=== PATIENT | female | born 1970 | race Caucasian/White ===

== ENCOUNTER → 2019-07-04 16:38 | Outpatient (BNVA) | payer SELFPAY | PROVIDERS: Family Provider Nurse Practitioner; PCP Nurse Practitioner; Visit Provider Nurse Practitioner | DX: E03.8 Other specified hypothyroidism (principal) | CPT/HCPCS: 84443 ==

== ENCOUNTER → 2019-11-16 08:10 | Outpatient (BNVA) | payer SELFPAY | PROVIDERS: Family Provider Nurse Practitioner; PCP Nurse Practitioner; Visit Provider Nurse Practitioner | DX: N39.0 Urinary tract infection, site not specified (principal); R39.9 Unspecified symptoms and signs involving the genitourinary system | CPT/HCPCS: 81003 ==

== ENCOUNTER → 2020-01-17 12:18 | Outpatient (BNVA) | payer SELFPAY | PROVIDERS: Family Provider Nurse Practitioner; PCP Nurse Practitioner; Visit Provider Nurse Practitioner | DX: E03.8 Other specified hypothyroidism (principal) | CPT/HCPCS: 84443 ==

== ENCOUNTER → 2020-05-09 08:25 | Outpatient (BNVA) | payer SELFPAY | PROVIDERS: Family Provider Nurse Practitioner; PCP Nurse Practitioner; Visit Provider Nurse Practitioner | DX: E03.8 Other specified hypothyroidism (principal); F41.9 Anxiety disorder, unspecified | CPT/HCPCS: 80053; 84443 ==

== ENCOUNTER → 2020-11-03 15:21 | Outpatient (BNVA) | payer OTHER, SELFPAY | PROVIDERS: Family Provider Nurse Practitioner; PCP Nurse Practitioner; Visit Provider Nurse Practitioner | DX: E03.8 Other specified hypothyroidism (principal); R53.83 Other fatigue; E55.9 Vitamin D deficiency, unspecified; F41.9 Anxiety disorder, unspecified | CPT/HCPCS: 80053; 82306; 82607; 84443; 85025 ==

== ENCOUNTER → 2021-05-04 15:59 | Outpatient (BNVA) | payer OTHER, SELFPAY | PROVIDERS: Family Provider Nurse Practitioner; PCP Nurse Practitioner; Visit Provider Nurse Practitioner | DX: E03.8 Other specified hypothyroidism (principal) | CPT/HCPCS: 80053; 84443 ==

== ENCOUNTER → 2021-12-08 10:50 | Outpatient (BNVA) | payer SELFPAY | PROVIDERS: Family Provider Nurse Practitioner; PCP Nurse Practitioner; Visit Provider Dermatology | DX: Z01.89 Encounter for other specified special examinations (principal) ==

== ENCOUNTER → 2022-06-08 09:13 | Outpatient (BNVA) | payer SELFPAY | PROVIDERS: Family Provider Nurse Practitioner; PCP Nurse Practitioner; Referring Provider Dermatology; Visit Provider Dermatology | DX: Z01.89 Encounter for other specified special examinations (principal) ==

== ENCOUNTER → 2022-06-29 08:43 | Outpatient (BNVA) | payer SELFPAY | PROVIDERS: Family Provider Nurse Practitioner; PCP Nurse Practitioner; Visit Provider Nurse Practitioner | DX: E03.8 Other specified hypothyroidism (principal); I10 Essential (primary) hypertension; F41.9 Anxiety disorder, unspecified | CPT/HCPCS: 80053; 80061; 84439; 84443; 84481; 85025 ==

== ENCOUNTER → 2022-12-07 09:29 | Outpatient (BNVA) | payer SELFPAY | PROVIDERS: Family Provider Nurse Practitioner; PCP Nurse Practitioner; Referring Provider Nurse Practitioner; Visit Provider Dermatology | DX: Z01.89 Encounter for other specified special examinations (principal) ==

== ENCOUNTER 2023-02-17 21:46 | Emergency (ER) | payer SELFPAY ==
[2023-02-17 21:55] VITALS: BP 160/101; PULSE 76; RESP 18; TEMP 36.8; O2SAT 99; BMI 29.0
--- NOTE | 2023-02-17 22:18 | CTR_ITS ---
PROCEDURE INFORMATION: Exam: CT Abdomen And Pelvis Without Contrast Exam date and time: 02/17/2023 10:41 PM Age: 52 years old Clinical indication: Abdominal pain; Prior surgery; Surgery date: 6+ months; Surgery type: Appy. Hysterectomy. Tubal. Patient HX: Left flank pain with nausea; Additional info: Left flank pain radiating to groin TECHNIQUE: Imaging protocol: Computed tomography of the abdomen and pelvis without contrast. Radiation optimization: All CT scans at this facility use at least one of these dose optimization techniques: automated exposure control; mA and/or kV adjustment per patient size (includes targeted exams where dose is matched to clinical indication); or iterative reconstruction. REPORTING DATA: Count of CT and Cardiac NM exams in prior 12 months: This patient has received 0 known CTs and 0 known cardiac nuclear medicine studies in the 12 months prior to the current study. COMPARISON: No relevant prior studies available. RADIATION DOSE METRICS: Total DLP (mGy-cm): 671.51 FINDINGS: Liver: Normal. No mass. Gallbladder and bile ducts: Normal. No calcified stones. No ductal dilation. Pancreas: Normal. No ductal dilation. Spleen: Normal. No splenomegaly. Adrenal glands: Normal. No mass. Kidneys and ureters: 1 mm obstructing calculus in the distal left ureter with mild left hydronephrosis. 2 mm calculus in the right kidney without hydronephrosis. Stomach and bowel: Unremarkable. No obstruction. No mucosal thickening. Appendix: The appendix is not visualized. No secondary signs of appendicitis. Intraperitoneal space: Unremarkable. No free air. No significant fluid collection. Vasculature: Arterial calcifications. No aneurysm. Lymph nodes: Unremarkable. No enlarged lymph nodes. Urinary bladder: Unremarkable as visualized. Reproductive: Unremarkable as visualized. Bones/joints: Mild degenerative changes of the spine. No acute fracture. Soft tissues: Unremarkable. CT/CT kidney stone [id number] IMPRESSION: 1. 1 mm obstructing calculus in the distal left ureter with mild hydronephrosis. 2. 2 mm right renal calculus.
--- NOTE | 2023-02-17 22:22 | W.ED.ABDPA2 ---
Documented by User: Blaine Rendon DO 02/17/23 22:25 HPI - Abdominal Pain General: Chief Complaint: Abdominal Pain Stated Complaint: Lower Back Pain\V Time Seen by Provider: 02/17/23 22:13 History of Present Illness: Patient presents to the ER with complaints of sudden onset left-sided sharp stabbing flank pain radiating to her groin that started at 1830 this evening. Patient has never had this before. Patient is nauseous and has vomited secondary to the pain. Patient is found nothing relieves the pain. Patient has never had this pain before. Patient does not have a history of kidney stones. Review of Systems General: Reports: 10 or more systems reviewed and unremarkable except in HPI and below PFSH ED PFSH: Medical History Adult onset hypothyroidism Anxiety Essential hypertension Surgical History History of appendectomy History of hysterectomy History of tubal ligation Family History Other Cancer Depression Hypertension Psychiatric illness Stroke Thyroid condition Social History Smoking and tobacco status: former smoker Quit status (tobacco): has quit using tobacco Second hand smoke exposure: No Smoking risk assessment/counseling performed?: No Alcohol intake: unknown Desire information about alcohol rehabilitation?: No Counseling given: No Substance/Drug Use: never Desire information about substance/drug rehabilitation?: No Counseling given: No Adopted: No Caregiver/support person: No Lives independently: Yes Household members: spouse Housing: House Marital status: Number of children: 4 Highest education level completed: Associate Degree: Occupational, Technical, Vocational Program service: No Current occupational status: employed Previous occupational history: retirement Pets and animals: Yes Do you think of yourself as: Straight/Heterosexual Current gender identity: Female Physical Exam Const: COMMON NORMALS: average body habitus, patient oriented x3, no limitations, healthy appearing, alert and well nourished HENMT: COMMON NORMALS: normocephalic, atraumatic, hearing grossly normal bilaterally, external ears normal, Normal external nose present and moist oral mucous membranes HEAD & SCALP: normocephalic and atraumatic NOSE: Normal external nose present EXTERNAL EAR: Yes external ears normal Neck/C-Spine: COMMON NORMALS: no JVD Chest: COMMONS NORMALS: normal inspection of the chest and normal palpation of entire chest wall Resp: COMMON NORMALS: normal respiratory effort, No retractions, No use of accessory muscles and clear to auscultation bilaterally AUSCULTATION: clear to auscultation bilaterally Cardio: COMMON NORMALS: no JVD, regular rate, regular rhythm, S1 normal heart sound present, S2 normal heart sound present, No gallops present (Cardio), No clicks present (Cardio), No murmurs present (Cardio) and No rub (Cardio) RATE: regular rate RHYTHM: regular rhythm HEART SOUNDS: S1 normal heart sound present and S2 normal heart sound present GI: COMMON NORMALS: Normal to inspection, nondistended, normoactive bowel sounds present, Soft to palpation, non-tender, No hepatosplenomegaly present and no masses PALPATION: Yes Soft to palpation and Yes No hepatosplenomegaly present : COMMON NORMALS: No no CVA tenderness (Left CVA tenderness) BLADDER/KIDNEY EXAM: No no CVA tenderness (Left CVA tenderness) Back/Pelvis: COMMON NORMALS: negative for no CVA tenderness (Left CVA tenderness) Neuro: COMMON NORMALS: patient oriented x3 SENSORIUM/ORIENTATION: Yes alert Course Vital Signs: Vital signs: Vital Signs Temperature 98.3 F 02/17/23 21:55 Pulse Rate 76 02/17/23 21:55 Respiratory Rate 18 02/17/23 23:43 Blood Pressure 160/101 02/17/23 21:55 Pulse Oximetry 99 02/17/23 21:55 MDM - Abdominal Pain Differential Diagnosis Likely calculus of kidney; Unlikely abdominal pain, acute appendicitis, constipation, diverticulitis, endometriosis, gastroenteritis, pancreatitis or small bowel obstruction Medical Records I reviewed the patient's medical records. Lab Data I reviewed the patient's lab results. 02/17/23 22:24 02/17/23 22:24 Labs/Radiology: Radiology Impressions Abdomen/Pelvis CT 02/17/23 22:18 IMPRESSION: 1. 1 mm obstructing calculus in the distal left ureter with mild hydronephrosis. 2. 2 mm right renal calculus. Laboratory Results WBC 16.49 10^3/uL (3.29-11.43) H 02/17/23 22:24 RBC 4.35 10^6/uL (3.85-5.65) 02/17/23 22: Hgb 14.30 g/dL (11.27-16.99) 02/17/23 22: Hct 41.2 % (36-47) 02/17/23 22: MCV 94.7 fl (85-98) 02/17/23 22: MCH 32.9 pg (27-33) 02/17/23 22: MCHC 34.7 g/dL (30-55) 02/17/23 22: RDW 12.4 % (12.1-15.1) 02/17/23: Plt Count 245 10^3/cmm (157-399) 02/17/23: MPV 9.2 fL (7.4-10.4) 02/17/23 22: Neut % (Auto) 87.2 % 02/17/23 22: Lymph % (Auto) 7.1 % 02/17/23: Nicholas % (Auto) 3.8 % 02/17/23 22: Eos % (Auto) 0.8 % 02/17/23 22: Baso % (Auto) 0.6 % 02/17/23: Neut # (Auto) 14.39 10^3/uL (1.8-7.7) H 02/17/23: Lymph # (Auto) 1.2 10^3/uL (0.8-4.8) 02/17/23 22: Nicholas # (Auto) 0.6 10^3/uL (0.2-0.9) 02/17/23 22: Eos # (Auto) 0.1 10^3/uL (0.0-0.8) 02/17/23 22: Baso # (Auto) 0.1 10^3/uL (0.0-0.1) 02/17/23: Nucleated RBC % (auto) 0 % 02/17/23: Nucleated RBCs # 0.0 /100WBC 02/17/23 22:24 Sodium 142 mmol/L (136-145) 02/17/23 22: Potassium 3.5 mmol/L (3.5-5.1) 02/17/23 22:24 Chloride 103 mmol/L (98-107) 02/17/23 22:24 Carbon Dioxide 25 mmol/L (22-29) 02/17/23 22:24 Anion Gap 17.5 (5-19) 02/17/23 22:24 BUN 12 mg/dL (6-20) 02/17/23 22:24 Creatinine 1.1 mg/dL (0.5-0.9) H 02/17/23 22:24 GFR Calculation 52.4 mL/min (90-130) L 02/17/23 22:24 Glucose 150 mg/dL (65-115) H 02/17/23 22:24 Calculated Osmolality 297 mOsm/kg (285-295) H 02/17/23 22:24 Calcium 10.0 mg/dL (8.5-10.5) 02/17/23 22:24 Total Bilirubin 0.3 mg/dL (0.15-1.2) 02/17/23 22:24 AST 15 U/L (0-32) 02/17/23 22:24 ALT 11 U/L (0-33) 02/17/23 22:24 Alkaline Phosphatase 111 U/L (35-105) H 02/17/23 22:24 Total Protein 7.2 g/dL (6.6-8.7) 02/17/23 22:24 Albumin 4.9 g/dL (3.5-5.2) 02/17/23 22:24 Globulin 2.3 g/dL (1.3-4.6) 02/17/23 22:24 Lipase 18 U/L (13-60) 02/17/23 22:24 HCG, Qual Negative (Negative) 02/17/23 22:24 Urine Color Yellow (Yellow) 02/17/23 22:37 Urine Appearance Cloudy (CLEAR) A 02/17/23 22:37 Urine pH 6 (5-7) 02/17/23 22:37 Ur Specific [place] 1.020 (1.005-1.030) 02/17/23 22:37 Urine Protein Trace (Negative) 02/17/23 22:37 Urine Glucose (UA) Norm (Normal) 02/17/23 22:37 Urine Ketones 1+ (Negative) H 02/17/23 22:37 Urine Blood 3+ (Negative) H 02/17/23 22:37 Urine Nitrate Positive (Negative) H 02/17/23 22:37 Urine Bilirubin Neg (Negative) 02/17/23 22:37 Urine Urobilinogen Neg mg/dL (Negative) 02/17/23 22:37 Ur Leukocyte Esterase 1+ (Negative) H 02/17/23 22:37 Urine RBC 15-25 /hpf (0-2) H 02/17/23 22:37 Urine WBC 15-25 /hpf (0-5) H 02/17/23 22:37 Ur Squamous Epith Cells 0-4 /hpf (0-5) H 02/17/23 22:37 Amorphous Sediment Not Reportable 02/17/23 22:37 Urine Bacteria 4+ /hpf (NONE) H 02/17/23 22:37 Urine Mucus 1+ /hpf 02/17/23 22:37 Discharge Plan Discharge Patient Disposition: Xfer Short-Term Hosp Clinical Impression: Kidney stone, UTI (urinary tract infection) Condition: Stable Prescriptions: No Action cranberry 500 mg capsule 500 mg PO DAILY Rx Instructions: administer with meals fluoxetine [Prozac] 40 mg capsule 40 mg PO QAM Qty: 90 1RF hydroxyzine pamoate 25 mg capsule 25 mg PO .at bedtime Qty: 90 1RF fenofibrate nanocrystallized [Tricor] 145 mg tablet 145 mg PO DAILY Qty: 90 1RF bupropion HCl [Wellbutrin SR] 200 mg tablet sustained-release 12 hr 200 mg PO Q12H Qty: 180 1RF valsartan-hydrochlorothiazide [Diovan HCT] 160-12.5 mg tablet 1 tab PO DAILY Qty: 90 1RF levothyroxine 75 mcg tablet 75 mcg PO DAILY Qty: 30 2RF Rx Instructions: dose decrease Referrals: Silvio Lazo, [facility] [Primary Care Provider] - Coding Level of Care Code ED Proprietary Trader for Chg Fwd Documented by User: Louise Santoyo MD 02/18/23 00:12 HPI - Abdominal Pain General: Chief Complaint: Abdominal Pain Stated Complaint: Lower Back Pain\V Time Seen by Provider: 02/17/23 22:13 PFSH ED PFSH: Medical History Adult onset hypothyroidism Anxiety Essential hypertension Surgical History History of appendectomy History of hysterectomy History of tubal ligation Family History Other Cancer Depression Hypertension Psychiatric illness Stroke Thyroid condition Social History Smoking and tobacco status: former smoker Quit status (tobacco): has quit using tobacco Second hand smoke exposure: No Smoking risk assessment/counseling performed?: No Alcohol intake: unknown Desire information about alcohol rehabilitation?: No Counseling given: No Substance/Drug Use: never Desire information about substance/drug rehabilitation?: No Counseling given: No Adopted: No Caregiver/support person: No Lives independently: Yes Household members: spouse Housing: House Marital status: Number of children: 4 Highest education level completed: Associate Degree: Occupational, Technical, Vocational Program service: No Current occupational status: employed Previous occupational history: retirement Pets and animals: Yes Do you think of yourself as: Straight/Heterosexual Current gender identity: Female Course Vital Signs: Vital signs: Vital Signs Temperature 98.3 F 02/17/23 21:55 Pulse Rate 76 02/17/23 21:55 Respiratory Rate 18 02/17/23 23:43 Blood Pressure 160/101 02/17/23 21:55 Pulse Oximetry 99 02/17/23 21:55 MDM - Abdominal Pain Medical Decision Making Patient presents here with an infected kidney stone she does have a kidney stone on the right with UTI spoke to Komal who accepted for high-level care for urology Lab Data 02/17/23 22:24 02/17/23 22:24 Labs/Radiology: Radiology Impressions Abdomen/Pelvis CT 02/17/23 22:18 IMPRESSION: 1. 1 mm obstructing calculus in the distal left ureter with mild hydronephrosis. 2. 2 mm right renal calculus. Laboratory Results WBC 16.49 10^3/uL (3.29-11.43) H 02/17/23 22:24 RBC 4.35 10^6/uL (3.85-5.65) 02/17/23 22:24 Hgb 14.30 g/dL (11.27-16.99) 02/17/23 22:24 Hct 41.2 % (36-47) 02/17/23 22:24 MCV 94.7 fl (85-98) 02/17/23 22: MCH 32.9 pg (27-33) 02/17/23 22: MCHC 34.7 g/dL (30-55) 02/17/23 22: RDW 12.4 % (12.1-15.1) 02/17/23: Plt Count 245 10^3/cmm (157-399) 02/17/23 22: MPV 9.2 fL (7.4-10.4) 02/17/23 22: Neut % (Auto) 87.2 % 02/17/23 22: Lymph % (Auto) 7.1 % 02/17/23 22: Nicholas % (Auto) 3.8 % 02/17/23 22:24 Eos % (Auto) 0.8 % 02/17/23 22: Baso % (Auto) 0.6 % 02/17/23: Neut # (Auto) 14.39 10^3/uL (1.8-7.7) H 02/17/23 22:24 Lymph # (Auto) 1.2 10^3/uL (0.8-4.8) 02/17/23 22: Nicholas # (Auto) 0.6 10^3/uL (0.2-0.9) 02/17/23 22: Eos # (Auto) 0.1 10^3/uL (0.0-0.8) 02/17/23 22: Baso # (Auto) 0.1 10^3/uL (0.0-0.1) 02/17/23 22: Nucleated RBC % (auto) 0 % 02/17/23: Nucleated RBCs # 0.0 /100WBC 02/17/23 22:24 Sodium 142 mmol/L (136-145) 02/17/23 22:24 Potassium 3.5 mmol/L (3.5-5.1) 02/17/23 22:24 Chloride 103 mmol/L (98-107) 02/17/23 22:24 Carbon Dioxide 25 mmol/L (22-29) 02/17/23 22:24 Anion Gap 17.5 (5-19) 02/17/23 22:24 BUN 12 mg/dL (6-20) 02/17/23 22:24 Creatinine 1.1 mg/dL (0.5-0.9) H 02/17/23 22:24 GFR Calculation 52.4 mL/min (90-130) L 02/17/23 22:24 Glucose 150 mg/dL (65-115) H 02/17/23 22:24 Calculated Osmolality 297 mOsm/kg (285-295) H 02/17/23 22:24 Calcium 10.0 mg/dL (8.5-10.5) 02/17/23 22:24 Total Bilirubin 0.3 mg/dL (0.15-1.2) 02/17/23 22:24 AST 15 U/L (0-32) 02/17/23 22:24 ALT 11 U/L (0-33) 02/17/23 22:24 Alkaline Phosphatase 111 U/L (35-105) H 02/17/23 22:24 Total Protein 7.2 g/dL (6.6-8.7) 02/17/23 22:24 Albumin 4.9 g/dL (3.5-5.2) 02/17/23 22:24 Globulin 2.3 g/dL (1.3-4.6) 02/17/23 22:24 Lipase 18 U/L (13-60) 02/17/23 22:24 HCG, Qual Negative (Negative) 02/17/23 22:24 Urine Color Yellow (Yellow) 02/17/23 22:37 Urine Appearance Cloudy (CLEAR) A 02/17/23 22:37 Urine pH 6 (5-7) 02/17/23 22:37 Ur Specific [place] 1.020 (1.005-1.030) 02/17/23 22:37 Urine Protein Trace (Negative) 02/17/23 22: Urine Glucose (UA) Norm (Normal) 02/17/23 22:37 Urine Ketones 1+ (Negative) H 02/17/23 22:37 Urine Blood 3+ (Negative) H 02/17/23 22:37 Urine Nitrate Positive (Negative) H 02/17/23 22:37 Urine Bilirubin Neg (Negative) 02/17/23 22:37 Urine Urobilinogen Neg mg/dL (Negative) 02/17/23 22:37 Ur Leukocyte Esterase 1+ (Negative) H 02/17/23 22:37 Urine RBC 15-25 /hpf (0-2) H 02/17/23 22:37 Urine WBC 15-25 /hpf (0-5) H 02/17/23 22:37 Ur Squamous Epith Cells 0-4 /hpf (0-5) H 02/17/23 22:37 Amorphous Sediment Not Reportable 02/17/23 22:37 Urine Bacteria 4+ /hpf (NONE) H 02/17/23 22:37 Urine Mucus 1+ /hpf 02/17/23 22:37 Discharge Plan Discharge Patient Disposition: Xfer Short-Term Hosp Clinical Impression: Kidney stone, UTI (urinary tract infection) Condition: Stable Prescriptions: No Action cranberry 500 mg capsule 500 mg PO DAILY Rx Instructions: administer with meals fluoxetine [Prozac] 40 mg capsule 40 mg PO QAM Qty: 90 1RF hydroxyzine pamoate 25 mg capsule 25 mg PO .at bedtime Qty: 90 1RF fenofibrate nanocrystallized [Tricor] 145 mg tablet 145 mg PO DAILY Qty: 90 1RF bupropion HCl [Wellbutrin SR] 200 mg tablet sustained-release 12 hr 200 mg PO Q12H Qty: 180 1RF valsartan-hydrochlorothiazide [Diovan HCT] 160-12.5 mg tablet 1 tab PO DAILY Qty: 90 1RF levothyroxine 75 mcg tablet 75 mcg PO DAILY Qty: 30 2RF Rx Instructions: dose decrease Referrals: Silvio Lazo, [facility] [Primary Care Provider] - Coding Level of Care Code ED Proprietary Trader for Magg Gavin
[2023-02-17 22:29] LABS: Basophils # 0.1 10^3/uL (0.0-0.1); Basophils % 0.6 %; Eosinophils # 0.1 10^3/uL (0.0-0.8); Eosinophils % 0.8 %; Hematocrit 41.2 % (36-47); Lymphocytes # 1.2 10^3/uL (0.8-4.8); Lymphocytes % 7.1 %; Mean Corpuscular HGB Conc 34.7 g/dL (30-55); Mean Corpuscular Hemoglobin 32.9 pg (27-33); Mean Corpuscular Volume 94.7 fl (85-98); Mean Platelet Volume 9.2 fL (7.4-10.4); Monocytes # 0.6 10^3/uL (0.2-0.9); Monocytes % 3.8 %; Neutrophils # 14.39 10^3/uL (1.8-7.7); Neutrophils % 87.2 %; Nucleated Red Blood Cells % 0 %; Platelet Count 245 10^3/cmm (157-399); Red Blood Count 4.35 10^6/uL (3.85-5.65); Red Cell Distribution Width 12.4 % (12.1-15.1); White Blood Count 16.49 10^3/uL (3.29-11.43)
[2023-02-17] MEDS: ketorolac 30 mg/mL INJ IVP (22:29)
[2023-02-17] MEDS: ondansetron 2 mg/ML SDV 2 mL 4 MG IVP (22:29)
[2023-02-17] MEDS: sodium chloride 0.9% 1,000 ML 999 ML IV (22:29)
[2023-02-17 22:50] LABS: HCG, Serum Qual Negative (Negative)
[2023-02-17 22:52] LABS: Add Urine Microscopic? YES; Bilirubin Urine Neg (Negative); Blood Urine 3+ (Negative); Glucose Urine UA Norm (Normal); Ketones Urine 1+ (Negative); Leukocyte Esterase Urine 1+ (Negative); Nitrate Urine Positive (Negative); Protein Urine Trace (Negative); Urine Appearance Cloudy (CLEAR); Urine Color Yellow (Yellow); Urobilinogen Urine Neg (Negative); pH Urine 6 (5-7)
[2023-02-17 22:53] LABS: Add Urine Culture? Yes; Bacteria Urine 4+ /hpf; Mucus Urine 1+ /hpf; RBC Urine 15-25 /hpf (0-2); Squamous Epithelial Cell Urine 0-4 /hpf (0-5); WBC Urine 15-25 /hpf (0-5)
[2023-02-17 22:53] LABS: Alanine Aminotransferase 11 U/L (0-33); Albumin Level 4.9 g/dL (3.5-5.2); Alkaline Phosphatase 111 U/L (35-105); Anion Gap 17.5 (5-19); Aspartate Amino Transferase 15 U/L (0-32); Blood Urea Nitrogen 12 mg/dL (6-20); Carbon Dioxide 25 mmol/L (22-29); Chloride 103 mmol/L (98-107); Globulin 2.3 g/dL (1.3-4.6); Glomerular Filtration Rate 52.4 mL/min (90-130); Glucose 150 mg/dL (65-115); Lipase 18 U/L (13-60); Osmolality Calculated 297 mOsm/kg (285-295); Potassium 3.5 mmol/L (3.5-5.1); Sodium 142 mmol/L (136-145); Total Bilirubin 0.3 mg/dL (0.15-1.2); Total Protein 7.2 g/dL (6.6-8.7)
[2023-02-17] MEDS: cefTRIAXone 1,000 MG in sodium chloride 0.9% (plus) 50 ML 100 MG IV (23:13)
[2023-02-17 23:43] VITALS: RESP 18
[2023-02-17] MEDS: morphine 4 mg/mL SDV 1 mL IVP (23:43)
[2023-02-18 00:47] VITALS: BP 141/83; PULSE 64; RESP 16; O2SAT 99
--- NOTE | 2023-02-18 00:57 | PC.NURSE ---
Report called to Clarke Olmedo RN in [facility]. All questions and concerns addressed at time of report.
[2023-02-18 05:59] VITALS: BP 108/76; PULSE 63; RESP 16; O2SAT 97
== END 2023-02-18 07:55 | disposition short-term general hospital (02) ==
PROVIDERS: Nurse Practitioner Family; Emergency Provider Emergency Medicine; PCP Nurse Practitioner
DX: N20.0 Calculus of kidney (principal); N39.0 Urinary tract infection, site not specified
CPT/HCPCS: 74176; 80053; 81001; 83690; 84703; 85025; 87077; 87086; 87186; 96365; 96375; 99285; J0696; J1885; J2270; J2405; J7030

== ENCOUNTER → 2023-03-08 09:57 | Outpatient (BNVA) | payer SELFPAY | PROVIDERS: PCP Nurse Practitioner; Visit Provider Dermatology | DX: Z01.89 Encounter for other specified special examinations (principal) | CPT/HCPCS: 99398 ==

== ENCOUNTER → 2023-09-06 10:07 | Outpatient (BNVA) | payer SELFPAY | PROVIDERS: PCP Nurse Practitioner; Visit Provider Dermatology | DX: Z01.89 Encounter for other specified special examinations (principal) ==

== ENCOUNTER 2023-09-20 09:04 | Outpatient (CLI) | payer OTHER, SELFPAY ==
--- NOTE | 2023-09-20 09:00 | MM_ITS ---
WS: [id number] VIEWS: MLO and CC views both breasts. 3D digital tomosynthesis is also included in this exam. No divine or mammograms Findings: There was no sign of mass, architectural distortion or suspicious calcification in either breast. The re are scattered areas of fibroglandular density Impression: MM/[place] [id number] BI-RADS: 1-Negative FOLLOW-UP: 1 Year Follow-up This mammogram was also analyzed by the Computer Aided Detection System R2 Imag e Conveyor System Dispatcher.
== END 2023-09-20 09:05 | disposition home or self-care (01) ==
LOC: MOBLMAM 09:08
PROVIDERS: PCP Nurse Practitioner; Visit Provider Nurse Practitioner
DX: Z12.31 Encounter for screening mammogram for malignant neoplasm of breast (principal)
CPT/HCPCS: 77063; 77067

== ENCOUNTER → 2023-11-10 10:58 | Outpatient (BNVA) | payer OTHER, SELFPAY | PROVIDERS: PCP Nurse Practitioner; Visit Provider Nurse Practitioner | DX: R30.0 Dysuria (principal) | CPT/HCPCS: 81000 ==

== ENCOUNTER 2024-05-30 10:25 | Outpatient (CLI) | payer OTHER, SELFPAY ==
--- NOTE | 2024-05-30 10:31 | XR_ITS ---
WS: [id number] XR lumbar spine 2-3V* [id number] REASON FOR EXAM: M62.81 - Muscle weakness (generalized) FINDINGS: Mild rotatory levoscoliosis. Normal lumbar lordosis. No vertebral body abnormality. Mild vertebral body osteophytosis L1-L5. Intervertebral disc spaces are intact and well preserved. No spondylolysis and no significant spondylolisthesis. XR/XR lumbar spine 2-3V* [id number] IMPRESSION: Minimal degenerative spondylosis of the lumbar spine.
== END 2024-05-30 10:26 | disposition home or self-care (01) ==
LOC: RAD 10:27
PROVIDERS: PCP Nurse Practitioner; Visit Provider Internal Medicine
DX: M62.81 Muscle weakness (generalized) (principal); M54.50 Low back pain, unspecified; M79.605 Pain in left leg
CPT/HCPCS: 72100

== ENCOUNTER → 2024-06-11 08:17 | Outpatient (BNVA) | payer OTHER, SELFPAY | PROVIDERS: PCP Nurse Practitioner; Visit Provider Nurse Practitioner | DX: E03.8 Other specified hypothyroidism (principal); I10 Essential (primary) hypertension; F41.9 Anxiety disorder, unspecified; E55.9 Vitamin D deficiency, unspecified | CPT/HCPCS: 80053; 80061; 82306; 82672; 84443; 85025 ==

== ENCOUNTER 2024-10-02 09:39 | Outpatient (CLI) | payer OTHER, SELFPAY ==
--- NOTE | 2024-10-02 09:40 | MM_ITS ---
WS: [id number] VIEWS: MLO and CC views both breasts. 3D digital tomosynthesis is also included in this exam. Comparison made with prior exam of 09/20/2023. . Findings: There are scattered areas of fibroglandular density. No mass, tumor calcification or architectural distortion. MM/MM scr BI tomosynthesis [id number] Impression: BI-RADS: 2 - Benign. FOLLOW-UP: 1 Year Follow-up This mammogram was also analyzed by the Computer Aided Detection System R2 Imag e Plastic Sheets Supervisor.
== END 2024-10-02 09:40 | disposition home or self-care (01) ==
LOC: MOBLMAM 09:40
PROVIDERS: PCP Nurse Practitioner; Visit Provider Nurse Practitioner
DX: Z12.31 Encounter for screening mammogram for malignant neoplasm of breast (principal); R92.323 Mammographic fibroglandular density, bilateral breasts
CPT/HCPCS: 77063; 77067

== ENCOUNTER → 2024-12-10 10:28 | Outpatient (BNVA) | payer OTHER, SELFPAY | PROVIDERS: PCP Nurse Practitioner; Visit Provider Nurse Practitioner | DX: E78.2 Mixed hyperlipidemia (principal); E03.8 Other specified hypothyroidism | CPT/HCPCS: 80053; 80061; 84439; 84443; 84481 ==